=== PATIENT | female | born 1965 | race Caucasian/White ===

== ENCOUNTER 2016-08-15 17:28 | Inpatient (IN) | payer SELFPAY ==
[~2016-08-15] VITALS: Ht 160 cm; Wt 91.1 kg
[2016-08-15 19:10] LABS: EOSINOPHIL (%) 0.4 % (0-5); HEMATOCRIT 44.4 % (36.0-46.0); IMMATURE GRANULOCYTE (%) 0.3 % (0.0-0.7); INSTRUMENT ABS NEUTROPHIL CT 7.2 K/uL; LYMPHOCYTE COUNT 1.1 K/uL (1.0-2.8); MCH 32.1 PG (29.0-34.0); MCHC 33.8 G/DL (30.0-36.0); MCV 94.9 FL (83-99); MEAN PLAT.VOLUME 8.8 uM^3 (9.5-12.4); MONOCYTE (%) 10.3 % (3-12); NEUTROPHIL (%) 77.1 % (45-76); NEUTROPHIL COUNT 7.2 K/uL (1.8-6.4); PLATELET COUNT 215 K/uL (156-360); RBC DIS.WIDTH-CV 13.1 % (11.8-14.6); RBC DIS.WIDTH-SD 45.8 % (39-53); RED BLOOD COUNT 4.68 M/uL (3.80-5.20); WHITE BLOOD COUNT 9.4 K/uL (4.1-10.2)
[2016-08-15 19:11] LABS: CHLORIDE 100 mEq/L (99-109); POTASSIUM 3.9 mEq/L (3.7-5.4); SODIUM 137 mEq/L (136-147)
[2016-08-15 19:13] LABS: GLUCOSE 103 mg/dL (70-99)
[2016-08-15 19:14] LABS: ANION GAP 13 MEQ/L (2-14); D-DIMER ELISA 1.53 mg/L FEU (< 0.57)
[2016-08-15 19:17] LABS: ALKALINE PHOSPHATASE 70 IU/L (3-129); GFR ESTIMATE (CALCULATED) > 59 mL/min/
[2016-08-15 19:18] LABS: UREA NITROGEN (BUN) 7 mg/dL (9-23)
[2016-08-15 19:24] LABS: TROP-I INTERPRETATION NEGATIVE; TROPONIN-I < 0.01 ng/mL (0.0-0.30)
[2016-08-15] MEDS ORDERED: ALEVE220 MG PO (20:38)
[2016-08-15 21:39] LABS: PROTHROMBIN TIME 9.9 (9.2-11.2); PTT 29.9 (25-32)
[2016-08-16 00:28] VITALS: BP 110/66
[2016-08-16 05:23] LABS: HEMATOCRIT 42.5 % (36.0-46.0); MCH 31.9 PG (29.0-34.0); MCHC 33.4 G/DL (30.0-36.0); MCV 95.5 FL (83-99); PLATELET COUNT 231 K/uL (156-360); RBC DIS.WIDTH-CV 13.2 % (11.8-14.6); RBC DIS.WIDTH-SD 46.5 % (39-53); RED BLOOD COUNT 4.45 M/uL (3.80-5.20); WHITE BLOOD COUNT 10.5 K/uL (4.1-10.2)
[2016-08-16 05:40] LABS: PTT 39.5 (25-32)
[2016-08-16 05:45] LABS: ANION GAP 11 MEQ/L (2-14); CHLORIDE 99 MEQ/L (99-109); GFR ESTIMATE (CALCULATED) > 59 mL/min/; GLUCOSE 137 mg/dL (70-99); POTASSIUM 3.7 MEQ/L (3.7-5.4); SAMPLE HEMOLYSIS CHECK 0; SAMPLE ICTERIC CHECK 0; SAMPLE LIPEMIA CHECK 0; SODIUM 136 MEQ/L (136-147); UREA NITROGEN (BUN) 13 mg/dL (9-23)
[2016-08-16 08:26] VITALS: BP 118/73
[2016-08-16 11:44] VITALS: BP 141/63
[2016-08-16 16:53] VITALS: BP 120/79
[2016-08-16 19:36] VITALS: BP 139/81
[2016-08-16 22:55] VITALS: BP 137/89
[2016-08-17 03:32] VITALS: BP 129/79
[2016-08-17 07:07] VITALS: BP 130/82
[2016-08-17 08:38] LABS: ANION GAP 10 MEQ/L (2-14); CHLORIDE 101 MEQ/L (99-109); GFR ESTIMATE (CALCULATED) > 59 mL/min/; GLUCOSE 167 mg/dL (70-99); POTASSIUM 3.8 MEQ/L (3.7-5.4); SAMPLE HEMOLYSIS CHECK 0; SAMPLE ICTERIC CHECK 0; SAMPLE LIPEMIA CHECK 0; SODIUM 138 MEQ/L (136-147); UREA NITROGEN (BUN) 18 mg/dL (9-23)
[2016-08-17 08:46] LABS: EOSINOPHIL (%) 0 % (0-5); IMMATURE GRANULOCYTE (%) 0.9 % (0.0-0.7); IMMATURE GRANULOCYTE COUNT 0.1 K/uL; INSTRUMENT ABS NEUTROPHIL CT 14.2 K/uL; LYMPHOCYTE COUNT 0.6 K/uL (1.0-2.8); MCH 30.9 PG (29.0-34.0); MCHC 32.9 G/DL (30.0-36.0); MEAN PLAT.VOLUME 9.1 uM^3 (9.5-12.4); MONOCYTE (%) 3.3 % (3-12); MONOCYTE COUNT 0.5 K/uL (0-0.8); NEUTROPHIL (%) 91.6 % (45-76); NEUTROPHIL COUNT 14.2 K/uL (1.8-6.4); PLATELET COUNT 273 K/uL (156-360); RBC DIS.WIDTH-CV 12.8 % (11.8-14.6); RBC DIS.WIDTH-SD 44.3 % (39-53); RED BLOOD COUNT 4.47 M/uL (3.80-5.20)
[2016-08-17 09:11] LABS: WHITE BLOOD COUNT 15.5 K/uL (4.1-10.2)
[2016-08-17 11:29] VITALS: BP 119/78
[2016-08-17 16:04] VITALS: BP 133/90
[2016-08-17 18:52] VITALS: BP 128/80
[2016-08-17 23:16] VITALS: BP 122/85
[2016-08-18 03:25] VITALS: BP 140/88
[2016-08-18 06:36] LABS: EOSINOPHIL (%) 0 % (0-5); HEMATOCRIT 41.4 % (36.0-46.0); IMMATURE GRANULOCYTE (%) 0.5 % (0.0-0.7); IMMATURE GRANULOCYTE COUNT 0.1 K/uL; LYMPHOCYTE COUNT 0.6 K/uL (1.0-2.8); MCH 31.4 PG (29.0-34.0); MCHC 32.9 G/DL (30.0-36.0); MCV 95.6 FL (83-99); MEAN PLAT.VOLUME 8.7 uM^3 (9.5-12.4); MONOCYTE (%) 4.2 % (3-12); MONOCYTE COUNT 0.6 K/uL (0-0.8); NEUTROPHIL (%) 90.9 % (45-76); PLATELET COUNT 284 K/uL (156-360); RBC DIS.WIDTH-CV 13.1 % (11.8-14.6); RBC DIS.WIDTH-SD 46.6 % (39-53); RED BLOOD COUNT 4.33 M/uL (3.80-5.20); WHITE BLOOD COUNT 13.2 K/uL (4.1-10.2)
[2016-08-18 06:56] LABS: ANION GAP 9 MEQ/L (2-14); CHLORIDE 103 MEQ/L (99-109); GFR ESTIMATE (CALCULATED) > 59 mL/min/; GLUCOSE 151 mg/dL (70-99); MAGNESIUM 2.2 mg/dl (1.3-2.7); POTASSIUM 4.3 MEQ/L (3.7-5.4); SAMPLE HEMOLYSIS CHECK 0; SAMPLE ICTERIC CHECK 0; SAMPLE LIPEMIA CHECK 0; SODIUM 138 MEQ/L (136-147); UREA NITROGEN (BUN) 18 mg/dL (9-23)
[2016-08-18 07:15] VITALS: BP 127/83
[2016-08-18 10:16] VITALS: BP 130/82
[2016-08-18 15:49] VITALS: BP 140/94
[2016-08-18 18:50] VITALS: BP 130/78
[2016-08-18 23:04] VITALS: BP 142/94
[2016-08-19 04:06] VITALS: BP 140/85
[2016-08-19 06:51] LABS: EOSINOPHIL (%) 0 % (0-5); HEMATOCRIT 42.7 % (36.0-46.0); IMMATURE GRANULOCYTE (%) 0.8 % (0.0-0.7); IMMATURE GRANULOCYTE COUNT 0.1 K/uL; INSTRUMENT ABS NEUTROPHIL CT 7.8 K/uL; LYMPHOCYTE COUNT 1.7 K/uL (1.0-2.8); MCH 30.9 PG (29.0-34.0); MCHC 32.3 G/DL (30.0-36.0); MCV 95.7 FL (83-99); MEAN PLAT.VOLUME 8.7 uM^3 (9.5-12.4); MONOCYTE (%) 8.5 % (3-12); MONOCYTE COUNT 0.9 K/uL (0-0.8); NEUTROPHIL (%) 74.3 % (45-76); NEUTROPHIL COUNT 7.8 K/uL (1.8-6.4); PLATELET COUNT 284 K/uL (156-360); RBC DIS.WIDTH-CV 13.2 % (11.8-14.6); RED BLOOD COUNT 4.46 M/uL (3.80-5.20); WHITE BLOOD COUNT 10.5 K/uL (4.1-10.2)
[2016-08-19 07:22] LABS: ANION GAP 10 MEQ/L (2-14); CHLORIDE 102 MEQ/L (99-109); GFR ESTIMATE (CALCULATED) > 59 mL/min/; POTASSIUM 4.1 MEQ/L (3.7-5.4); SAMPLE HEMOLYSIS CHECK 0; SAMPLE ICTERIC CHECK 0; SAMPLE LIPEMIA CHECK 0; SODIUM 140 MEQ/L (136-147); UREA NITROGEN (BUN) 17 mg/dL (9-23)
[2016-08-19 07:34] VITALS: BP 134/92
[2016-08-19 07:35] LABS: GLUCOSE 108 mg/dL (70-99)
[2016-08-19 11:44] VITALS: BP 139/92
[2016-08-19 16:04] VITALS: BP 135/94
[2016-08-19 18:33] LABS: THROMBIN TIME+ 35 (H) sec
[2016-08-19 19:13] VITALS: BP 133/83
[2016-08-19 22:45] VITALS: BP 118/77
[2016-08-20 04:25] VITALS: BP 114/70
[2016-08-20 07:36] VITALS: BP 137/92
[2016-08-20 11:19] VITALS: BP 131/66
[2016-08-20 15:29] VITALS: BP 133/83
[2016-08-20 19:31] VITALS: BP 123/82
[2016-08-20 23:48] VITALS: BP 111/77
[2016-08-21 04:28] VITALS: BP 118/79
[2016-08-21 08:21] VITALS: BP 136/77
[2016-08-21 13:34] VITALS: BP 123/82
[2016-08-21] MEDS ORDERED: SPIRIVA RESPIMAT4 GM IH (14:05)
[2016-08-21] MEDS ORDERED: PREDNISONE10 MG PO (14:05)
[2016-08-21] MEDS ORDERED: XARELTO20 MG PO (14:05)
[2016-08-21] MEDS ORDERED: BUPROPION HCL150 M2 PO (14:05)
[2016-08-21] MEDS ORDERED: ADVAIR HFA120 INHALA IH (14:05)
[2016-08-21] MEDS ORDERED: XARELTO15 MG PO (14:05)
[2016-08-21] MEDS ORDERED: NICOTINE PATCH1 EAC2 TD (14:05)
[2016-08-21] MEDS ORDERED: BREO ELLIPTA I1 EACH IH (15:12)
[2016-08-21 15:55] VITALS: BP 140/94
[2016-08-23 12:03] LABS: APCR to FVL REFLEX Has been added (()); DRVVT Mixing Study Interp Not Indicated (()); PROTEIN C FUNCTIONAL ACTIVITY+ 134 % (70-180); PTT-LA 60 sec (<=40); PTT-LA Reflex Has been added (()); Protein S, Free 150 % normal (50-147); Thrombosis Consult Level Limited (()); dRVVT Screen 36 sec (<=45)
[2016-08-26 10:01] LABS: ANTITHROMBIN III ACTIVITY+ 87 % activi (80-120)
== END 2016-08-21 17:08 | disposition home or self-care (01) | DRG 175 ==
LOC: EME 17:28 → 5EAST 22:13 → EDOF 22:13 → 5EAST 08-16 00:10
PROVIDERS: Emergency Medicine; Hospitalist; Internal Medicine
DX: I26.99 Other pulmonary embolism without acute cor pulmonale (principal); J96.01 Acute respiratory failure with hypoxia; J44.1 Chronic obstructive pulmonary disease with (acute) exacerbation; I82.492 Acute embolism and thrombosis of other specified deep vein of left lower extremity; E27.8 Other specified disorders of adrenal gland; K44.9 Diaphragmatic hernia without obstruction or gangrene; E78.5 Hyperlipidemia, unspecified; R93.8 Abnormal findings on diagnostic imaging of other specified body structures; N83.209 Unspecified ovarian cyst, unspecified side; F17.210 Nicotine dependence, cigarettes, uncomplicated; Z71.6 Tobacco abuse counseling; Z91.19 Patient's noncompliance with other medical treatment and regimen
CPT/HCPCS: 71275; 80048; 80053; 81240 90; 83090 90; 83735; 83880; 84484; 85025; 85027; 85240 90; 85300 90; 85303 90; 85305 90; 85306 90; 85307 90; 85379; 85610; 85613 90; 85670 90; 85730; 85730 90; 86146 90; 86147 90; 93005; 93970; 94640; 94640 76; 94664; 94760; 94799; 99202; 99281; 99285; J1885; J2270; J2920; J2930; J7030; J7512

== ENCOUNTER 2016-09-02 13:03 | Emergency (ER) | payer SELFPAY ==
[~2016-09-02] VITALS: Ht 157.5 cm; Wt 89.8 kg
[~2016-09-02 13:03] MED LIST: ADVAIR HFA120 INHALA IH; ALEVE220 MG PO; BREO ELLIPTA I1 EACH IH; BUPROPION HCL150 M2 PO; NICOTINE PATCH1 EAC2 TD; PREDNISONE10 MG PO; SPIRIVA RESPIMAT4 GM IH; XARELTO15 MG PO; XARELTO20 MG PO
[2016-09-02 13:41] LABS: EOSINOPHIL (%) 3.8 % (0-5); EOSINOPHIL COUNT 0.2 K/uL (0-0.3); HEMATOCRIT 43.9 % (36.0-46.0); IMMATURE GRANULOCYTE (%) 0.4 % (0.0-0.7); INSTRUMENT ABS NEUTROPHIL CT 3.5 K/uL; LYMPHOCYTE COUNT 1.2 K/uL (1.0-2.8); MCH 31.1 PG (29.0-34.0); MCHC 33.7 G/DL (30.0-36.0); MCV 92.2 FL (83-99); MEAN PLAT.VOLUME 8.5 uM^3 (9.5-12.4); MONOCYTE COUNT 0.7 K/uL (0-0.8); NEUTROPHIL COUNT 3.5 K/uL (1.8-6.4); PLATELET COUNT 215 K/uL (156-360); RBC DIS.WIDTH-CV 12.4 % (11.8-14.6); RED BLOOD COUNT 4.76 M/uL (3.80-5.20)
[2016-09-02 13:45] LABS: WHITE BLOOD COUNT 5.6 K/uL (4.1-10.2)
[2016-09-02 13:48] LABS: CHLORIDE 102 mEq/L (99-109); POTASSIUM 3.8 mEq/L (3.7-5.4)
[2016-09-02 13:49] LABS: SODIUM 138 mEq/L (136-147)
[2016-09-02 13:50] LABS: GLUCOSE 106 mg/dL (70-99)
[2016-09-02 13:52] LABS: ANION GAP 9 MEQ/L (2-14)
[2016-09-02 13:54] LABS: GFR ESTIMATE (CALCULATED) > 59 mL/min/; INTER. NORMALIZED RATIO 1.1; PROTHROMBIN TIME 11.3 (9.2-11.2)
[2016-09-02 13:55] LABS: UREA NITROGEN (BUN) 10 mg/dL (9-23)
[2016-09-02 16:40] VITALS: BP 132/88
== END 2016-09-02 16:42 | disposition home or self-care (01) ==
LOC: EME 13:03
PROVIDERS: Nurse Practitioner Family
DX: M79.604 Pain in right leg (principal); I83.891 Varicose veins of right lower extremity with other complications; Z86.718 Personal history of other venous thrombosis and embolism; Z86.711 Personal history of pulmonary embolism; Z79.01 Long term (current) use of anticoagulants; Z87.891 Personal history of nicotine dependence
CPT/HCPCS: 80048; 85025; 85610; 85730; 93971; 99281; 99284